=== PATIENT | male | born 1985 | race Caucasian/White ===

== ENCOUNTER → 2020-10-16 15:15 | Outpatient (BNVA) | payer BC, SELFPAY | PROVIDERS: Visit Provider Nurse Practitioner Family ==

== ENCOUNTER → 2021-02-17 11:29 | Outpatient (BNVA) | payer BC, SELFPAY | PROVIDERS: Visit Provider Nurse Practitioner Family | DX: R07.82 Intercostal pain (principal); M79.18 Myalgia, other site | CPT/HCPCS: 20552; 20553; J3300 ==